=== PATIENT | male | born 1995 | race Caucasian/White ===

== ENCOUNTER 2017-04-25 02:43 | Emergency (ER) | payer BC ==
[~2017-04-25] VITALS: Ht 165.1 cm; Wt 77.2 kg
[2017-04-25 02:53] VITALS: TEMP 36.6; O2SAT 94; Ht 165.1 cm; Wt 77.2 kg
[2017-04-25 03:24] LABS: BUN/CREATININE RATIO 10.8 (10-20); CALCIUM 8.4 mg/dl (8.5-10.1); CREATININE 0.95 mg/dl (0.60-1.40); POTASSIUM 3.5 mmol/L (3.5-5.1)
[2017-04-25 06:18] VITALS: BP 105/75; PULSE 66; O2SAT 97
--- NOTE | 2017-04-25 07:42 | EMERGENCY ROOM VISIT NOTE ---
History Report prepared by Benja: Megha Krueger Under the Supervision of: Dr. Tracie Landis D.O. First contact with patient: 02:45 Chief Complaint: ALCOHOL OVERDOSE Stated Complaint: ALCOHOL History of Present Illness The patient is a 22 year old male who presents to the Emergency Room with complaints of an episode of an alcohol overdose occurring this evening. Per the RA technology applications consultant, the patient was seen being escorted into his room by a guest by an RA and the RA called EMS. They report that the patient vomited on the way in. The patient states that he was out drinking vodka with his friends. HPI limited secondary to alcohol intoxication. Source of History: patient History Limited By: intoxication Onset: this evening Position: other (global) Quality: other (global) Timing: other (episode) Associated Symptoms: + vomiting Review of Systems See HPI for pertinent positives & negatives. A total of 10 systems reviewed and were otherwise negative. Past Medical & Surgical Medical Problems: (1) No known health problems Family History No pertinent family history Social History Smoking Status: Never Smoker Alcohol Use: occasionally Marital Status: single Housing Status: lives with roommate Occupation Status: [employer] student Current/Historical Medications Unable to Obtain Active Prescriptions or Reported Meds Allergies Coded Allergies: No Known Allergies (Unverified , 03/01/16) Physical Exam Vital Signs Date Time Temp Pulse Resp B/P (MAP) Pulse Ox O2 Delivery O2 Flow Rate FiO2 04/25/17 06:18 66 17 105/75 97 04/25/17 05:05 70 14 108/70 97 Room Air 04/25/17 04:00 65 13 101/69 95 Room Air 04/25/17 03:05 63 04/25/17 02:53 94 Room Air 04/25/17 02:53 36.6 74 14 116/54 99 Room Air Physical Exam General: Awake and answers questions appropriately. Smells of alcohol. HEENT: Head - normocephalic and atraumatic Pupils are equal, round, 3mm and sluggishly reactive to light. Extraocular eye muscles are intact, and sclera are anicteric. Nose - moist nasal mucosa without discharge. Mouth - moist buccal mucosa. Oropharynx is nonerythematous and there is no tonsillar exudate or edema noted. Neck: Supple; no JVD, nuchal rigidity, cervical lymphadenopathy. Heart: Regular rate and rhythm. There is a normal S1 and S2 with no murmurs, clicks, or gallops appreciated. Lungs: Clear to auscultation bilaterally with no wheezes, rales, or rhonchi. Abdomen: Soft, completely nontender, nondistended, with good bowel sounds. There are no palpable pulsatile masses or hepatosplenomegaly. There is no guarding, rigidity, or rebound noted. Extremities: No evidence of cyanosis, clubbing, or edema. There are easily palpable peripheral pulses. Skin: warm and dry with good turgor and no rashes. Medical Decision & Procedures Laboratory Results 04/25/17 02:52 Test 04/25/17 02:52 Anion Gap 10.0 mmol/L (3-11) Est Creatinine Clear Calc Drug Dose 116.9 ml/min Estimated GFR () 131.2 Estimated GFR (Non- 113.2 BUN/Creatinine Ratio 10.8 (10-20) Calcium Level 8.4 mg/dl (8.5-10.1) Ethyl Alcohol mg/dL 169.0 mg/dl (0-3) Laboratory results per my review. ED Course 0255: Past medical records reviewed. The patient was evaluated in room A12A. A complete history and physical exam was performed. Labs are drones above. The patient was placed in the prone position to avoid aspiration. He was observing the deputy sheriff court services and pulse oximeter. 0410: The patient is sleeping and vitals are stable 0505: I reevaluated the patient and he was asleep. He is hemodynamically stable. 0606: Upon reevaluation, the patient was resting comfortably. I discussed the dangers of excessive drinking with him. I discussed findings and results with him. He verbalized agreement of the treatment plan. The patient was discharged home. Medical Decision The patient is a 22 year old male who presents to the Emergency Room with complaints of an episode of an alcohol overdose occurring this evening. Differential diagnoses include alcohol overdose, drug intoxication, head trauma , hypoglycemia. LABS: Alcohol 169 Normal renal function Glucose 113 The patient presents to the emergency department after consuming too much alcohol. He was observed here in the ER until he was more sober. He was cooperative throughout his stay. He was encouraged to avoid such excessive alcohol use in the future. Impression Primary Impression: Alcohol overdose Scribe Attestation The scribe's documentation has been prepared under my direction and personally reviewed by me in its entirety. I confirm that the note above accurately reflects all work, treatment, procedures, and medical decision making performed by me. Departure Information Dispostion Home / Self-Care Prescriptions Unable to Obtain Active Prescriptions or Reported Meds Referrals No Doctor, Assigned (PCP) Forms HOME CARE DOCUMENTATION FORM, IMPORTANT VISIT INFORMATION Patient Instructions My [facility] Additional Instructions Rest. Take plenty of clear liquids Take tylenol for headache Avoid such excessive alcohol use in the future Problem Qualifiers Primary Impression: Alcohol overdose Encounter type: initial encounter Injury intent: accidental or unintentional Qualified Codes: T51.91XA - Toxic effect of unspecified alcohol , accidental (unintentional), initial encounter
== END 2017-04-25 06:19 | disposition home or self-care (01) ==
LOC: C.EDA 02:43 → EDBD 02:43 → C.EDA 06:19
DX: T51.0X1A Toxic effect of ethanol, accidental (unintentional), initial encounter (principal)